=== PATIENT | male | born 1970 | race Caucasian/White ===

== ENCOUNTER → 2024-10-31 08:07 | Outpatient (REF) | payer SELFPAY | LOC: RAD 08:07 | PROVIDERS: ATTENDING PHYSICIAN Family Medicine | DX: E78.2 Mixed hyperlipidemia (principal); Z82.49 Family history of ischemic heart disease and other diseases of the circulatory system | CPT/HCPCS: 75571 ==

== ENCOUNTER → 2024-11-18 16:13 | Outpatient (REF) | payer BC, SELFPAY | LOC: PAVMRI 16:13 | PROVIDERS: ATTENDING PHYSICIAN Family Medicine | DX: M51.34 Other intervertebral disc degeneration, thoracic region (principal); S23.9XXS Sprain of unspecified parts of thorax, sequela; M51.360 Other intervertebral disc degeneration, lumbar region with discogenic back pain only; M54.50 Low back pain, unspecified | CPT/HCPCS: 72146; 72148 ==

== ENCOUNTER 2025-01-10 06:18 | Day surgery (SDC) | payer BC, SELFPAY | END 2025-01-10 14:41 | disposition home or self-care (01) | LOC: GI 06:18 | PROVIDERS: ATTENDING PHYSICIAN Internal Medicine Gastroenterology | DX: Z12.11 Encounter for screening for malignant neoplasm of colon (principal); K64.8 Other hemorrhoids; K63.89 Other specified diseases of intestine; Z83.719 Family history of colon polyps, unspecified | CPT/HCPCS: 45385; 88305 ==